=== PATIENT | female | born 1980 | race Caucasian/White ===

== ENCOUNTER 2021-01-30 21:21 | Emergency (ER) | payer MEDICARE ==
[~2021-01-30 21:21] MED LIST: IBU600 MG PO
[2021-01-30] MEDS ORDERED: IBUPROFEN800 MG PO (23:13)
== END 2021-01-30 23:26 | disposition home or self-care (01) ==
LOC: ER1 21:21
DX: S92.511A Displaced fracture of proximal phalanx of right lesser toe(s), initial encounter for closed fracture (principal); F17.210 Nicotine dependence, cigarettes, uncomplicated; X83.8XXA Intentional self-harm by other specified means, initial encounter; Y92.009 Unspecified place in unspecified non-institutional (private) residence as the place of occurrence of the external cause
CPT/HCPCS: 12001; 73630; 99283

== ENCOUNTER → 2022-01-06 | Outpatient (CLI) | payer OTHER ==
[~2022-01-06] MED LIST changes: +IBUPROFEN800 MG PO
== END ==
LOC: MRI 16:30
DX: M51.26 Other intervertebral disc displacement, lumbar region (principal); M48.061 Spinal stenosis, lumbar region without neurogenic claudication; G89.29 Other chronic pain
CPT/HCPCS: 72148